=== PATIENT | male | born 1990 | race Caucasian/White ===

== ENCOUNTER → 2018-08-05 | Outpatient (CLI) | payer OTHER ==
[2014-08-26 00:40] VITALS: BP 131/64
--- NOTE | 2018-08-05 16:08 | RAD ---
Right foot, 3 views, 08/05/2018: HISTORY: Foot pain No foot fracture or dislocation is identified. There is mild spurring at the first MTP joint. There is mild spurring along the dorsal aspect of the midfoot. There are internal fixation devices bridging old healed fractures of the medial malleolus and distal fibula. IMPRESSION: 1. Mild degenerative change. 2. No acute right foot abnormality is detected. Electronically signed by: Bebeto Vazquez MD (08/05/2018 4:04 PM) [facility]
== END | disposition home or self-care (01) ==
LOC: DXRAD 11:50
PROVIDERS: ATTEND Physician Assistant
DX: M19.071 Primary osteoarthritis, right ankle and foot (principal); Z87.81 Personal history of (healed) traumatic fracture
CPT/HCPCS: 73630

== ENCOUNTER → 2018-10-19 | Outpatient (CLI) | payer OTHER ==
[2014-08-26 00:40] VITALS: BP 131/64
--- NOTE | 2018-10-19 09:10 | RAD ---
Left knee radiograph 10/19/2018 12:00 AM INDICATION: Left knee pain with no known injury COMPARISON: None available. TECHNIQUE: 2 views of the left knee are provided. FINDINGS: There is no acute fracture or dislocation. There is no significant knee joint effusion. Bone mineralization is within normal limits. Joint spaces are maintained. Regional soft tissues are within normal limits. There is no soft tissue gas or osseous erosion. 16 mm sclerotic density in the distal femoral diaphysis may represent a bone island. IMPRESSION: No acute fracture or dislocation. Electronically signed by: Diane Tee MD (10/19/2018 9:07 AM) [id number]
== END | disposition home or self-care (01) ==
LOC: RAD 08:39
PROVIDERS: ATTEND Registered Nurse
DX: M25.562 Pain in left knee (principal)
CPT/HCPCS: 73560